=== PATIENT | male | born 1975 | race Caucasian/White ===

== ENCOUNTER 2017-01-27 23:28 | Emergency (ER) | payer BC ==
[2017-01-27 23:34] VITALS: O2SAT 98
--- NOTE | 2017-01-28 00:38 | C.PDOC ---
History Of Present Illness Patient presents to ED with complaints of nasal bleeding for 2 hours. Patient state she has a polyp on his right nare that bleeds and cannot be operated because he is currently taking Brilinta. Patient denies vision changes, dizziness, n/v/d or any other complaints at this time. Time Seen by Provider: 01/28/17 00:38 Chief Complaint (Nursing): ENT Problem History Per: Patient History/Exam Limitations: None Onset/Duration Of Symptoms: Hrs Current Symptoms Are (Timing): Still Present Symptoms Have Been: Continuous Severity: Mild Pain Scale Rating Of: 2 Past Medical History Reviewed: Historical Data, Nursing Documentation, Vital Signs Vital Signs: Last Vital Signs Temp 97.7 F 01/27/17 23:33 Pulse 75 01/27/17 23:33 Resp 22 01/27/17 23:33 BP 140/86 01/27/17 23:33 Pulse Ox 98 01/28/17 01:04 - Medical History PMH: HTN Surgical History: Coronary Stent - [facility] Procedures DILATION OF 1 COR ART WITH DRUG-ELUT INTRA, PERC APPROACH (09/01/16) MEASURE OF CARDIAC SAMPL & PRESSURE, L HEART, PERC APPROACH (09/01/16) PLAIN RADIOGRAPHY OF LEFT HEART USING OTHER CONTRAST (09/01/16) PLAIN RADIOGRAPHY OF MULT COR ART USING OTH CONTRAST (09/01/16) Family History: States: [place], CAD (father) - Social History Hx Tobacco Use: Yes Hx Alcohol Use: No Hx Substance Use: No - Immunization History Hx Tetanus Toxoid Vaccination: No Hx Influenza Vaccination: No Hx Pneumococcal Vaccination: No Review Of Systems Constitutional: Negative for: Fever, Chills Eyes: Negative for: Vision Change ENT: Positive for: Nose Pain Gastrointestinal: Negative for: Nausea, Vomiting, Diarrhea Neurological: Negative for: Weakness, Dizziness Physical Exam - Physical Exam Appears: Non-toxic, No Acute Distress Skin: Warm, Dry Head: Normacephalic Nose: No Discharge, No Epistaxis, Other (No active bleeding) Oral Mucosa: Moist Throat: No Erythema Chest: Symmetrical Cardiovascular: Rhythm Regular Respiratory: No Rales, No Rhonchi, No Wheezing Gastrointestinal/Abdominal: Soft, No Tenderness, No Guarding, No Rebound Extremity: Capillary Refill (<2 seconds), No Deformity Neurological/Psych: Oriented x3, Normal Speech, Normal Cognition Gait: Steady ED Course And Treatment - Laboratory Results Result Diagrams: 01/28/17 01:12 01/28/17 01:12 O2 Sat by Pulse Oximetry: 98 (RA) Pulse Ox Interpretation: Normal Disposition Counseled Patient/Family Regarding: Studies Performed, Diagnosis, Need For Followup - Disposition Referrals: Adalberto Purvis MD [Primary Care Provider] - Disposition: HOME/ ROUTINE Disposition Time: 01:48 Condition: FAIR Additional Instructions: Please return if symptoms recur Instructions: Nosebleed (ED), Nasal Polyps (ED) Forms: [employer] (Emirati) - Clinical Impression Clinical Impression: Epistaxis, Nasal polyp - Scribe Statement The provider has reviewed the documentation as recorded by the Scribe Jus Keith All medical record entries made by the Sriibe were at my direction and personally dictated by me. I have reviewed the chart and agree that the record accurately reflects my personal performance of the history, physical exam, medical decision making, and the department course for this patient. I have also personally directed, reviewed, and agree with the discharge instructions and disposition.
[2017-01-28 01:16] LABS: BASO % 0.1 % (0.0-2.0); EOS % 0.1 % (0.0-4.0); HEMOGLOBIN 12.1 g/dL (12.0-18.0); LYMPH # 1.2 K/uL (1.0-4.3); LYMPH % 12.7 % (20.0-40.0); MEAN CELL VOLUME 85.4 fL (80.0-94.0); MEAN CORPUSCULAR HEMOGLOBIN 29.2 pg (27.0-31.0); MEAN CORPUSCULAR HGB CONC 34.1 g/dL (33.0-37.0); MEAN PLATELET VOLUME 9.1 fL (7.2-11.7); MONO # 0.5 K/uL (0.0-0.8); MONO % 5.1 % (0.0-10.0); NEUT # 7.9 K/uL (1.8-7.0); RBC 4.15 Mil/uL (4.40-5.90); RED CELL DISTRIBUTION WIDTH 13.6 % (11.5-14.5); WHITE BLOOD COUNT 9.6 K/uL (4.8-10.8)
[2017-01-28 01:25] LABS: GFR AFRICAN-AMERICAN > 60; GFR NON-AFRICAN AMERICAN > 60
[2017-01-28 01:26] LABS: BLOOD UREA NITROGEN 23 mg/dL (9-20); CALCIUM 8.4 mg/dl (8.6-10.4)
[2017-01-28 01:27] LABS: INR 1.1; PROTHROMBIN TIME 12.1 SECONDS (9.7-12.2)
[2017-01-28 02:22] VITALS: BP 119/73; PULSE 60; RESP 18; TEMP 97.6
== END 2017-01-28 02:23 | disposition home or self-care (01) ==
LOC: C.ER 23:28 → SUPCPDRO 23:28 → C.ER 01-28 02:23
DX: R04.0 Epistaxis (principal); J33.9 Nasal polyp, unspecified

== ENCOUNTER 2017-02-10 09:35 | Observation (INO) | payer BC ==
[2017-02-10] MEDS ORDERED: Phenylephrine 1% Nasal Spray (15 ml) ONE (09:51)
[2017-02-10] MEDS ORDERED: Lidocaine 2% Inj (20ml) ONE (09:52)
[2017-02-10] MEDS ORDERED: Sodium Chloride 0.9% 1,000 ML IV ONE (10:21)
--- NOTE | 2017-02-10 10:23 | C.PDOC ---
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 Patient reports he had a nasal polyp removed on 02/04/2017 and is also on blood thinners. Patient denies fever, chest pain, SOB, headache or dizziness. 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 ) Past Medical History Reviewed: Historical Data, Nursing Documentation, Vital Signs Vital Signs: Last Vital Signs Temp 97.5 F L 02/10/17 15:08 Pulse 75 02/10/17 15:08 Resp 18 02/10/17 15:08 BP 113/74 02/10/17 15:08 Pulse Ox 100 02/10/17 15:08 - Medical History PMH: HTN Surgical History: Coronary Stent - [facility] Procedures DILATION OF 1 COR ART WITH DRUG-ELUT INTRA, PERC APPROACH (09/01/16) MEASURE OF CARDIAC SAMPL & PRESSURE, L HEART, PERC APPROACH (09/01/16) PLAIN RADIOGRAPHY OF LEFT HEART USING OTHER CONTRAST (09/01/16) PLAIN RADIOGRAPHY OF MULT COR ART USING OTH CONTRAST (09/01/16) Family History: States: [place], CAD (father) - Social History Hx Tobacco Use: Yes Hx Alcohol Use: No Hx Substance Use: No - Immunization History Hx Tetanus Toxoid Vaccination: No Hx Influenza Vaccination: No Hx Pneumococcal Vaccination: No Review Of Systems Except As Marked, All Systems Reviewed And Found Negative. Constitutional: Negative for: Fever ENT: Positive for: Nose Discharge (Epistaxis ) Cardiovascular: Negative for: Chest Pain Respiratory: Negative for: Shortness of Breath Gastrointestinal: Positive for: Vomiting Neurological: Negative for: Headache, Dizziness Physical Exam - Physical Exam Appears: Non-toxic, In Acute Distress (Mild distress ) Skin: Warm, Dry, Pale, No Rash Head: Atraumatic, Normacephalic Eye(s): bilateral: Normal Inspection, PERRL, EOMI Ear(s): Bilateral: Normal Nose: Epistaxis (Activly bleeding from right nase with clots) Oral Mucosa: Moist Throat: Other ((+) Blood in the posterior pharynx) Neck: Normal, Normal ROM, Supple Chest: Symmetrical, No Tenderness Cardiovascular: Rhythm Regular, No Friction Rub, No Murmur Respiratory: Normal Breath Sounds, No Rales, No Rhonchi, No Wheezing Gastrointestinal/Abdominal: Normal Exam, Soft, No Tenderness Back: Normal Inspection, No CVA Tenderness, No Vertebral Tenderness Extremity: Normal ROM, No Swelling Neurological/Psych: Oriented x3, Normal Speech, Normal Motor Gait: Steady ED Course And Treatment - Laboratory Results Result Diagrams: 02/10/17 10:31 02/10/17 10:31 O2 Sat by Pulse Oximetry: 98 (RA ) Pulse Ox Interpretation: Normal Critical Care Time - Critical Care Note Total Time (in mins): 35 Documented critical care: time excludes all time spent performing seperately billable procedures. Medical Decision Making Medical Decision Making: PLAN: * CBC * CMP * Sodium Chloride IV ED OBSERVATION Discharge: Yes Date of observation admission: 02/10/17 Time of observation admission: 11:30 - Observation admission statement Patient is being placed in observation because:: severe epistaxis - Goals of Observation Goals of observation are:: observing for re-bleeding. - Progress Note Progress Note: The nose was having severe bleeding, pressure applied by me without success. Neosynephrine placed into the nares without success 1200, Posterior packing placed by [facility] lined with lidocaine and nasir- synephrine with control of bleeding. at 1300, on first re-exam, the patient had a spot of bleeding but is overall still controlled. Dr. Fowler contacted and states to observe the patient over the next 3 hours. 02/10/17 1400 The case was discussed with Dr. Fowler (the patient's ENT who states that the patient should follow up with the ENT from [place] in 1-2 days without fail. He states that the patient can be discharged with the packing in place and should not be removed. 02/10/[address] Fowler called back to explain to put the patient on Antibiotics upon discharge. 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 - Scribe Statement The provider has reviewed the documentation as recorded by the Scribe Kelly Garcia All medical record entries made by the Scribe were at my direction and personally dictated by me. I have reviewed the chart and agree that the record accurately reflects my personal performance of the history, physical exam, medical decision making, and the department course for this patient. I have also personally directed, reviewed, and agree with the discharge instructions and disposition. Procedures - Epistaxis Control Consent Obtained: verbal consent Nostril: Right Nose Prepped With: lidocaine (2%) Direct Inspection: yes Clots Removed by: manually Cautery Used: none Device Inserted: other (Posterior packing) Patient Tolerated Procedure: well Complications: other (Bleeding controlled)
[2017-02-10 10:38] LABS: BASO # 0.1 K/uL (0.0-0.2); EOS # 0.2 K/uL (0.0-0.7); EOS % 2.6 % (0.0-4.0); LYMPH # 1.9 K/uL (1.0-4.3); MEAN CELL VOLUME 85.7 fL (80.0-94.0); MEAN CORPUSCULAR HEMOGLOBIN 28.9 pg (27.0-31.0); MEAN CORPUSCULAR HGB CONC 33.7 g/dL (33.0-37.0); MEAN PLATELET VOLUME 8.3 fL (7.2-11.7); MONO # 0.5 K/uL (0.0-0.8); MONO % 8.2 % (0.0-10.0); RED CELL DISTRIBUTION WIDTH 13.9 % (11.5-14.5); WHITE BLOOD COUNT 5.8 K/uL (4.8-10.8)
[2017-02-10 10:46] LABS: INR 1.2
[2017-02-10 10:51] LABS: CHLORIDE 99 mmol/L (98-107); SODIUM 139 mmol/L (132-148)
[2017-02-10 10:52] LABS: POTASSIUM 4.4 mmol/L (3.6-5.2)
[2017-02-10 10:54] LABS: ALB/GLOB RATIO 1.3 (1.0-2.1); ALKALINE PHOSPHATASE 59 U/L (38-126); ALT/SGPT 54 U/L (21-72); AST/SGOT 40 U/L (17-59); BILIRUBIN,TOTAL 0.5 mg/dL (0.2-1.3); BLOOD UREA NITROGEN 10 mg/dL (9-20); CARBON DIOXIDE 30 mmol/L (22-30); GFR AFRICAN-AMERICAN > 60; GLUCOSE,RANDOM 101 mg/dL (75-110); TOTAL PROTEIN 6.9 g/dL (6.3-8.3)
[2017-02-10 10:55] LABS: CALCIUM 9.7 mg/dl (8.6-10.4)
[2017-02-10] MEDS ORDERED: Oxycodone/Acetaminophen 5/325 mg Tab ONE (12:50)
[2017-02-10] MEDS ORDERED: Oxycodone/Acetaminophen 5/325 mg Tab PO ONE (12:51)
[2017-02-10 15:09] VITALS: BP 113/74; PULSE 75; RESP 18; TEMP 97.5
[2017-02-10 17:04] VITALS: O2SAT 98
== END 2017-02-10 15:01 | disposition home or self-care (01) ==
LOC: C.ER 09:35 → C.9OBSV 12:31
PROVIDERS: ADMIT Emergency Medicine; ATTEND Emergency Medicine
DX: R04.0 Epistaxis (principal); I10 Essential (primary) hypertension; Z87.891 Personal history of nicotine dependence
CPT/HCPCS: 80053; 85025; 85610; 85730; 96360; G0378; J7040

== ENCOUNTER 2017-06-15 08:30 | Observation (INO) | payer BC ==
[2017-06-15] MEDS ORDERED: Aspirin 325 mg EC Tablets PO STA (09:17)
--- NOTE | 2017-06-15 09:37 | C.PDOC ---
History Of Present Illness 41 year old male with PMHx of HTN and HLD presents to the ED for evaluation of high blood pressure, dizziness, headache, and CP. Patient reports he had a STENT placed in the back of his heart done by Dr. Tate. Patient reports that this morning he felt like his blood pressure was high, and felt pressure in the back of his head. Patient also reports a pressure like non radiating CP, he measured his BP at home and was 140/110, tried to go to work but still felt dizzy so he decided to come in for evaluation. Patient denies fever, chills, diaphoresis, nausea, vomit, back pain, blurry vision. Time Seen by Provider: 06/15/17 09:06 Chief Complaint (Nursing): High Blood Pressure History Per: Patient History/Exam Limitations: no limitations Onset/Duration Of Symptoms: Hrs Current Symptoms Are (Timing): Still Present Associated Symptoms: Chest Pain, Dizziness, Headache Quality Of Symptoms: Asymptomatic Exacerbating Factor(s): Pos: None Recent travel outside of the [place]: No Additional History Per: Patient Past Medical History Reviewed: Historical Data, Nursing Documentation, Vital Signs Vital Signs: Last Vital Signs Temp 97.3 F L 06/15/17 08:44 Pulse 55 L 06/15/17 13:08 Resp 18 06/15/17 13:08 BP 130/73 06/15/17 13:08 Pulse Ox 98 06/15/17 13:08 - Medical History PMH: HTN, Hypercholesterolemia Surgical History: Coronary Stent - [facility] Procedures DILATION OF 1 COR ART WITH DRUG-ELUT INTRA, PERC APPROACH (09/01/16) MEASURE OF CARDIAC SAMPL & PRESSURE, L HEART, PERC APPROACH (09/01/16) PLAIN RADIOGRAPHY OF LEFT HEART USING OTHER CONTRAST (09/01/16) PLAIN RADIOGRAPHY OF MULT COR ART USING OTH CONTRAST (09/01/16) Family History: States: Unknown Family Hx, [place], CAD (father) - Social History Hx Tobacco Use: Yes Hx Alcohol Use: No Hx Substance Use: No - Immunization History Hx Tetanus Toxoid Vaccination: No Hx Influenza Vaccination: No Hx Pneumococcal Vaccination: No Review Of Systems Constitutional: Negative for: Fever, Chills, Sweats Eyes: Negative for: Vision Change Cardiovascular: Positive for: Chest Pain Respiratory: Negative for: Cough, Shortness of Breath Gastrointestinal: Negative for: Nausea, Vomiting, Abdominal Pain Musculoskeletal: Negative for: Back Pain Skin: Negative for: Rash Neurological: Positive for: Headache. Negative for: Weakness, Numbness Physical Exam - Physical Exam Appears: Non-toxic, No Acute Distress Skin: Normal Color, Warm, Dry Head: Atraumatic, Normacephalic Nose: No Discharge, No Deformity Oral Mucosa: Moist Neck: Normal ROM, Supple Chest: Symmetrical Cardiovascular: Rhythm Regular, No Murmur Respiratory: Normal Breath Sounds, No Rales, No Rhonchi, No Wheezing Gastrointestinal/Abdominal: Soft, No Tenderness Extremity: Normal ROM, No Pedal Edema, No Calf Tenderness, No Swelling Neurological/Psych: Oriented x3, Normal Speech, Normal Cognition Gait: Steady ED Course And Treatment - Laboratory Results Result Diagrams: 06/15/17 09:57 06/15/17 09:57 ECG: Interpreted By Me, Viewed By Me ECG Rhythm: Sinus Bradycardia Rate From EC O2 Sat by Pulse Oximetry: 100 (On RA) Pulse Ox Interpretation: Normal - Radiology CXR: Interpreted by Me, Viewed By Me CXR Interpretation: Yes: Other (No focal consolidation, significant pleural effusion, or definite pneumothorax identified.). No: No Acute Disease, Infiltrates Medical Decision Making Medical Decision Making: Impression : 41 y/o male with a coronary stent c/o high BP, headache and CP. Plan: * EKG * Blood work * CXR * Ecotrin 325 mg PO 11:30 - Spoke with Dr. Purvis about the patient who recommended Dr. Nicole for admission but he is currently on vacation, then called and spoke with Medicine marble mason. Spoke with patient and he accepts and agrees with admission. Disposition Discussed With : Lela Deleon Counseled Patient/Family Regarding: Studies Performed, Diagnosis - Disposition Disposition: HOSPITALIZED Disposition Time: 11:25 Condition: GUARDED - POA Present On Arrival: None - Clinical Impression Clinical Impression: Acute coronary syndrome, Angina at rest - Scribe Statement The provider has reviewed the documentation as recorded by the Scribe Vidal Damico All medical record entries made by the Scribe were at my direction and personally dictated by me. I have reviewed the chart and agree that the record accurately reflects my personal performance of the history, physical exam, medical decision making, and the department course for this patient. I have also personally directed, reviewed, and agree with the discharge instructions and disposition. Decision To Admit - Pt Status Changed To: Hospital Disposition Of: Observation - . Bed Request Type: Telemetry Admitting Physician: Lela Deleon Patient Diagnosis: Acute coronary syndrome, Angina at rest
[2017-06-15 10:08] LABS: BASO % 0.2 % (0.0-2.0); EOS # 0.2 K/uL (0.0-0.7); EOS % 4.6 % (0.0-4.0); HEMATOCRIT 41.5 % (35.0-51.0); LYMPH # 2.2 K/uL (1.0-4.3); LYMPH % 47.6 % (20.0-40.0); MEAN CORPUSCULAR HEMOGLOBIN 29.4 pg (27.0-31.0); MEAN PLATELET VOLUME 9.5 fL (7.2-11.7); MONO # 0.4 K/uL (0.0-0.8); MONO % 9.5 % (0.0-10.0); NRBC % 0.1 % (0.0-2.0); RED CELL DISTRIBUTION WIDTH 13.7 % (11.5-14.5); WHITE BLOOD COUNT 4.7 K/uL (4.8-10.8)
[2017-06-15 10:15] LABS: ALB/GLOB RATIO 1.7 (1.0-2.1); ALKALINE PHOSPHATASE 49 U/L (38-126); ALT/SGPT 35 U/L (21-72); AST/SGOT 27 U/L (17-59); BILIRUBIN,TOTAL 0.6 mg/dL (0.2-1.3); BLOOD UREA NITROGEN 13 mg/dL (9-20); CALCIUM 8.6 mg/dl (8.6-10.4); CARBON DIOXIDE 30 mmol/L (22-30); CHLORIDE 99 mmol/L (98-107); CHOLESTEROL 137 mg/dL (0-199); GFR AFRICAN-AMERICAN > 60; GLUCOSE,RANDOM 97 mg/dL (75-110); POTASSIUM 4.8 mmol/L (3.6-5.2); SODIUM 135 mmol/L (132-148); TOTAL PROTEIN 6.8 g/dL (6.3-8.3)
--- NOTE | 2017-06-15 10:22 | RAD ---
HISTORY: chest pain COMPARISON: Chest x-ray performed 09/01/16 TECHNIQUE: Chest, one view. FINDINGS: LUNGS: No focal consolidation. Please note that chest x-ray has limited sensitivity for the detection of pulmonary masses. PLEURA: No significant pleural effusion identified. No definite pneumothorax . CARDIOVASCULAR: The cardiomediastinal silhouette appears within normal limits of size. OSSEOUS STRUCTURES: No acute osseous abnormality identified. VISUALIZED UPPER ABDOMEN: Unremarkable. OTHER FINDINGS: None. IMPRESSION: No focal consolidation, significant pleural effusion, or definite pneumothorax identified.
--- NOTE | 2017-06-15 13:59 | CP.PCM.PN ---
Subjective - Date & Time of Evaluation Date of Evaluation: 06/15/17 Time of Evaluation: 09:00 - Subjective Subjective: Patient was seen and examined at bedside. 41 year old male with PMHx of HTN and HLD presents to the ED for evaluation of high blood pressure, dizziness, headache, and CP. Patient reports he had a STENT placed in the back of his heart done by Dr. Tate. Patient reports that this morning he felt like his blood pressure was high, and felt pressure in the back of his head. Patient also reports a pressure like non radiating CP, he measured his BP at home and was 140/110, tried to go to work but still felt dizzy so he decided to come in for evaluation. He reports that he has been complaint with his medications and his last cardiology visit was one month ago. He also reports that he has a stress test in December and reports this was normal. He states that he feels like when works is stressful he gets this same feeling. Patient denies fever, chills , diaphoresis, nausea, vomit, back pain, blurry vision. PMH: VA, HTN Medications: Crestor 20mg PO HS, Coreg 6.25 mg PO BID, Protonix 40mg PO daily, Lisinopril 5mg PO daily, Plavix 75mg PO daily, Aspirin 81mg PO daily Surgical hx: none Family hx: Father of VA at age 60; mother - HTN, diabetes, and HLD; sister - HTN, aneurysm, had an VA at age 47 and is still living Social: Pt is a former smoker for 16 years smoking continues to smoke, has difficulties quitting. Denies illicit drugs, drinks alcohol socially. 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 PMD: Dr. Adalberto Purvis in [place], [place] Cardiology: Dr. Tate, last visit was one month ago Objective - Vital Signs/Intake and Output Vital Signs (last 24 hours): Temp Pulse Resp BP Pulse Ox 97.3 F L 55 L 18 130/73 98 06/15/17 08:44 06/15/17 13:08 06/15/17 13:08 06/15/17 13:08 06/15/17 13:08 - Medications Medications: Current Medications Aspirin (Aspirin Chewable) 81 mg PO DAILY NESTOR Carvedilol (Coreg) 6.25 mg PO BID NESTOR Clopidogrel Bisulfate (Plavix) 75 mg PO DAILY NESTOR Famotidine (Pepcid) 20 mg PO BID NESTOR Lisinopril (Zestril) 5 mg PO DAILY NESTOR Rosuvastatin Calcium (Crestor) 20 mg PO HS NESTOR - Labs Labs: 06/15/17 09:57 06/15/17 09:57 - Constitutional Appears: Non-toxic, No Acute Distress - Head Exam Head Exam: NORMAL INSPECTION - Eye Exam Eye Exam: EOMI Pupil Exam: NORMAL ACCOMODATION - ENT Exam ENT Exam: Mucous Membranes Moist - Respiratory Exam Respiratory Exam: Clear to Ausculation Bilateral, NORMAL BREATHING PATTERN. absent: Accessory Muscle Use, Rales, Rhonchi, Wheezes, Respiratory Distress - Cardiovascular Exam Cardiovascular Exam: REGULAR RHYTHM, +S1, +S2 - GI/Abdominal Exam GI & Abdominal Exam: Soft, Normal Bowel Sounds. absent: Distended, Firm, Guarding, Tenderness - Extremities Exam Extremities Exam: Normal Inspection. absent: Calf Tenderness, Pedal Edema - Back Exam Back Exam: NORMAL INSPECTION. absent: CVA tenderness (L), CVA tenderness (R), paraspinal tenderness - Neurological Exam Neurological Exam: Alert, Awake, CN II-XII Intact, Normal Gait, Oriented x3 - Psychiatric Exam Psychiatric exam: Normal Affect, Normal Mood - Skin Skin Exam: Dry, Intact, Normal Color, Warm Assessment and Plan - Assessment and Plan (Free Text) Assessment: Stable Anginaf/u repeat echo chest pain has resolved on exam, not reproducible Chest X ray - normal EKG Troponin <0.0120, will trend with EKGs f/u hba1c, lipid panel, cbc, cmp, tsh/freet4 Spoke to patients's gas plant technician (Dr. Tate) over the phone who stated likely not cardiac in origin, no need for cardiac consult at this time Patient has a normal stress test back in December Aspirin 81mg PO daily Hypertension Was elevated in the ED but now within normal limits, headaches has resolved Per patient, gas plant technician patients blood pressure is normally very well controlled Lisinopril 5mg PO daily Hx VA in August 2016, stent placed Crestor 20mg PO HS Coreg 6.25 mg PO BID Plavix 75mg PO daily Aspirin 81mg PO daily Prophylaxis: GI: Protonix 40mg DVT: SCDs Nicotine Patch Heart healthy diet All Medical management per Dr. Deleon
[2017-06-15 18:04] VITALS: RESP 20
[2017-06-16 06:44] LABS: ALB/GLOB RATIO 1.7 (1.0-2.1); ALKALINE PHOSPHATASE 48 U/L (38-126); ALT/SGPT 30 U/L (21-72); AST/SGOT 32 U/L (17-59); BILIRUBIN,TOTAL 0.5 mg/dL (0.2-1.3); BLOOD UREA NITROGEN 16 mg/dL (9-20); CALCIUM 8.7 mg/dl (8.6-10.4); CARBON DIOXIDE 29 mmol/L (22-30); CHLORIDE 98 mmol/L (98-107); GFR AFRICAN-AMERICAN > 60; GLUCOSE,RANDOM 90 mg/dL (75-110); MAGNESIUM 1.9 mg/dL (1.6-2.3); PHOSPHOROUS 3.6 mg/dL (2.5-4.5); POTASSIUM 4.4 mmol/L (3.6-5.2); SODIUM 134 mmol/L (132-148); TOTAL PROTEIN 6.3 g/dL (6.3-8.3)
[2017-06-16 06:57] LABS: BASO # 0.1 K/uL (0.0-0.2); BASO % 1.3 % (0.0-2.0); EOS # 0.2 K/uL (0.0-0.7); EOS % 4.5 % (0.0-4.0); HEMATOCRIT 40.7 % (35.0-51.0); LYMPH # 2.5 K/uL (1.0-4.3); LYMPH % 52.7 % (20.0-40.0); MEAN CORPUSCULAR HEMOGLOBIN 29.8 pg (27.0-31.0); MEAN CORPUSCULAR HGB CONC 35.5 g/dL (33.0-37.0); MEAN PLATELET VOLUME 9.6 fL (7.2-11.7); MONO # 0.4 K/uL (0.0-0.8); MONO % 8.1 % (0.0-10.0); NRBC % 0.1 % (0.0-2.0); RED CELL DISTRIBUTION WIDTH 13.4 % (11.5-14.5); WHITE BLOOD COUNT 4.8 K/uL (4.8-10.8)
[2017-06-16 07:09] LABS: THYROID STIMULATING HORMONE 1.42 mIU/L (0.46-4.68)
[2017-06-16 08:16] VITALS: O2SAT 97
[2017-06-16] MEDS ORDERED: Pantoprazole 40 mg EC Tab PO SCH (10:00)
[2017-06-16 12:51] VITALS: BP 129/93; PULSE 65; TEMP 98
--- NOTE | 2017-06-16 16:33 | CP.PCM.PN ---
Subjective - Date & Time of Evaluation Date of Evaluation: 06/16/17 Time of Evaluation: 11:00 - Subjective Subjective: PGY-[address] Deleon Patient seen and examined at bedside. No acute events overnight. Patient's chest pain has resolved. Patient has good PO intake. Patient denies fever, chills, headache, shortness of breath, nausea or vomiting. Objective - Vital Signs/Intake and Output Vital Signs (last 24 hours): Temp Pulse Resp BP Pulse Ox 98.0 F 65 20 129/93 H 97 06/16/17 12:50 06/16/17 12:50 06/16/17 12:50 06/16/17 12:50 06/16/17 12:50 Intake and Output: 06/16/17 06/16/17 06:59 18:59 Output Total 200 Balance -200 - Labs Labs: 06/16/17 06:12 06/16/17 06:12 - Constitutional Appears: Well, Non-toxic, No Acute Distress - Head Exam Head Exam: ATRAUMATIC, NORMOCEPHALIC - Eye Exam Eye Exam: Normal appearance - ENT Exam ENT Exam: Mucous Membranes Moist - Neck Exam Neck Exam: Normal Inspection - Respiratory Exam Respiratory Exam: Clear to Ausculation Bilateral, NORMAL BREATHING PATTERN. absent: Respiratory Distress - Cardiovascular Exam Cardiovascular Exam: REGULAR RHYTHM, +S1, +S2. absent: Murmur - GI/Abdominal Exam GI & Abdominal Exam: Soft, Normal Bowel Sounds - Extremities Exam Extremities Exam: Normal Capillary Refill, Normal Inspection. absent: Joint Swelling - Neurological Exam Neurological Exam: Alert, Awake, Oriented x3 - Psychiatric Exam Psychiatric exam: Normal Affect, Normal Mood - Skin Skin Exam: Dry, Warm Assessment and Plan - Assessment and Plan (Free Text) Assessment: Stable Angina Troponin negative x3 Echo showed normal LV size, systolic function mildly impaired, Grade I abnormal relaxation pattern chest pain has resolved on exam, not reproducible Chest X ray - normal a1c 5.8, lipid panel and TSH unremarkable Spoke to patients's hvac tech (Dr. Tate) over the phone who stated likely not cardiac in origin, no need for cardiac consult at this time Patient has a normal stress test back in December Aspirin 81mg PO daily Hypertension Was elevated in the ED but now within normal limits, headaches has resolved Per patient, hvac tech patients blood pressure is normally very well controlled Lisinopril 5mg PO daily Hx [place] in August 2016, stent placed Crestor 20mg PO HS Coreg 6.25 mg PO BID Plavix 75mg PO daily Aspirin 81mg PO daily Prophylaxis: GI: Protonix 40mg DVT: SCDs Nicotine Patch Heart healthy diet Patient is medically stable to be discharge Patient was instructed to follow up with PMD and hvac tech All Medical management per Dr. Deleon
--- NOTE | 2017-06-16 19:12 | CARD ---
APPROVED REPORT EXAM: Two-dimensional and M-mode echocardiogram with Doppler and color Doppler. Other Information Quality : GoodRhythm : INDICATION Dizziness and Vertigo Cardiac Disease: CAD Chest Pain STEMI RISK FACTORS Hypertension Hyperlipidemia 2D DIMENSIONS IVSd0.8 (0.7-1.1cm)LVDd5.0 (3.9-5.9cm) PWd0.8 (0.7-1.1cm)LVDs3.8 (2.5-4.0cm) FS (%) 23.0 %LVEF (%)45.9 (>50%) M-Mode DIMENSIONS RVDd2.51 (2.1-3.2cm)Left Atrium (MM)3.46 (2.5-4.0cm) IVSd0.85 (0.7-1.1cm)Aortic Root2.99 (2.2-3.7cm) LVDd5.14 (4.0-5.6cm)Aortic Cusp Exc.1.90 (1.5-2.0cm) PWd0.81 (0.7-1.1cm)FS (%) 27 % LVDs3.74 (2.0-3.8cm)LVEF (%)53 (>50%) Mitral Valve MV E Kaiajetd26.2cm/sMV A Polntwwz96.0cm/sE/A ratio0.7 TDI E/Lateral E'0.0E/Medial E'0.0 Tricuspid Valve TR Peak [id number]/sTR Peak [id number] LEFT VENTRICLE The left ventricle is normal size. There is normal left ventricular wall thickness. The systolic function is mildly impaired. Mild Septal Hypokinesis Transmitral Doppler flow pattern is Grade I-abnormal relaxation pattern. RIGHT VENTRICLE The right ventricle is normal size. There is normal right ventricular wall thickness. The right ventricular systolic function is normal. ATRIA The left atrium size is normal. The right atrium size is normal. AORTIC VALVE The aortic valve is normal in structure. No aortic regurgitation is present. There is no aortic valvular stenosis. MITRAL VALVE The mitral valve is mildly thickened. A mild mitral valve prolapse is present. There is no mitral valve stenosis. Mitral regurgitation is trace. TRICUSPID VALVE The tricuspid valve is normal in structure. There is trace tricuspid regurgitation. PULMONIC VALVE There is trace to mild pulmonic valvular regurgitation. GREAT VESSELS The aortic root is normal in size. The IVC is normal in size and collapses >50% with inspiration. PERICARDIAL EFFUSION There is no pericardial effusion. <Conclusion> The left ventricle is normal size. There is normal left ventricular wall thickness. The systolic function is mildly impaired. Mild Septal Hypokinesis Transmitral Doppler flow pattern is Grade I-abnormal relaxation pattern.
--- NOTE | 2017-06-17 06:56 | HP ---
HISTORY OF PRESENT ILLNESS: Patient is admitted to the hospital with chief complaint of chest pain and weakness. Patient came to the ER and was advised admission. Patient has a history of coronary artery disease, hypercholesterolemia. Patient came to the hospital and advised admission. Patient has a history of stent inserted in August, followed by Dr. Tate. PHYSICAL EXAMINATION: GENERAL: Patient is awake, alert, oriented. VITAL SIGNS: Temperature 98, pulse 90. HEENT: Within normal limits. NECK: Supple. CHEST: Symmetrical. HEART: Regular. ABDOMEN: Soft. EXTREMITIES: No edema. IMPRESSION: Patient is suffering from unstable angina. Patient to get bedrest, cardiac enzymes, Cardiology evaluation. Lela Deleon MD
[2017-06-17] MEDS ORDERED: Pneumococcal 23-Valent Vaccine SC ONE (10:00)
== END 2017-06-16 13:00 | disposition home or self-care (01) ==
LOC: C.ER 08:30 → C.9E 11:27 → C.6T 12:54
PROVIDERS: ADMIT Internal Medicine Pulmonary Disease; ATTEND Internal Medicine Pulmonary Disease
DX: I25.110 Atherosclerotic heart disease of native coronary artery with unstable angina pectoris (principal); I10 Essential (primary) hypertension; E78.5 Hyperlipidemia, unspecified; I25.2 Old myocardial infarction; Z87.891 Personal history of nicotine dependence
CPT/HCPCS: 36415; 71010; 80053; 80061; 83036; 83735; 83880; 84100; 84439; 84443; 84484; 85025; 93306; 99284; G0378; J1644

== ENCOUNTER 2017-07-31 12:58 | Emergency (ER) | payer BC ==
[2017-07-31 13:02] VITALS: BMI 22.6
[2017-07-31 13:06] VITALS: O2SAT 99
[2017-07-31] MEDS ORDERED: Sodium Chloride 0.9% 1,000 ML IV STA (13:58)
[2017-07-31] MEDS ORDERED: Lidocaine 95 MG in Sodium Chloride 0.9% 100 ML IV STA (13:58)
--- NOTE | 2017-07-31 13:58 | C.PDOC ---
History Of Present Illness 41 year old male presents to the ED c/o of new onset of intermittent right flank and right groin pain that started this morning. Patient states his pain is associated with nausea and hematuria. Patient denies any prior hx of kidney stones, fever, chills, vomit, diarrhea. Time Seen by Provider: 07/31/17 13:31 Chief Complaint (Nursing): Back Pain History Per: Patient History/Exam Limitations: no limitations Onset/Duration Of Symptoms: Hrs Current Symptoms Are (Timing): Still Present Severity: Mild Quality Of Discomfort: "Pain" Associated Symptoms: Nausea, Urinary Symptoms Recent travel outside of the [place]: No Additional History Per: Patient Past Medical History Reviewed: Historical Data, Nursing Documentation, Vital Signs Vital Signs: Last Vital Signs Temp 97.3 F L 07/31/17 13:02 Pulse 78 07/31/17 13:02 Resp 18 07/31/17 13:02 BP 147/96 H 07/31/17 13:02 Pulse Ox 99 07/31/17 15:45 - Medical History PMH: HTN, Hypercholesterolemia Surgical History: Coronary Stent - [facility] Procedures DILATION OF 1 COR ART WITH DRUG-ELUT INTRA, [facility] APPROACH (09/01/16) MEASURE OF CARDIAC SAMPL & PRESSURE, L HEART, PERC APPROACH (09/01/16) PLAIN RADIOGRAPHY OF LEFT HEART USING OTHER CONTRAST (09/01/16) PLAIN RADIOGRAPHY OF MULT COR ART USING OTH CONTRAST (09/01/16) Family History: States: Unknown Family Hx, [place], CAD (father) - Social History Hx Tobacco Use: Yes Hx Alcohol Use: No Hx Substance Use: No - Immunization History Hx Tetanus Toxoid Vaccination: No Hx Influenza Vaccination: No Hx Pneumococcal Vaccination: No Review Of Systems Constitutional: Negative for: Fever, Chills Cardiovascular: Negative for: Chest Pain, Palpitations Respiratory: Negative for: Cough, Shortness of Breath Gastrointestinal: Positive for: Nausea. Negative for: Abdominal Pain Genitourinary: Positive for: Hematuria Musculoskeletal: Positive for: Back Pain, Other (groin pain) Skin: Negative for: Rash Neurological: Negative for: Weakness, Numbness Physical Exam - Physical Exam Appears: Non-toxic, Other (Moderate distress) Skin: Normal Color, Warm, Dry Head: Atraumatic, Normacephalic Eye(s): bilateral: Normal Inspection Nose: No Discharge, No Deformity Oral Mucosa: Moist Neck: Normal ROM, Supple Chest: Symmetrical Cardiovascular: Rhythm Regular, No Murmur Respiratory: Normal Breath Sounds, No Rales, No Rhonchi, No Wheezing Gastrointestinal/Abdominal: Soft, No Tenderness, No Guarding, No Rebound Back: CVA Tenderness Extremity: Normal ROM, No Deformity, No Swelling Neurological/Psych: Oriented x3, Normal Speech, Normal Cognition Gait: Steady ED Course And Treatment - Laboratory Results Result Diagrams: 07/31/17 14:09 07/31/17 14:09 O2 Sat by Pulse Oximetry: 99 (On RA) Pulse Ox Interpretation: Normal - CT Scan/US CT abd/pelvis Other Rad Studies (CT/US): Read By Radiologist, Radiology Report Reviewed CT/US Interpretation: PROCEDURE: CT scan abdomen pelvis. HISTORY: Dated 07/31 right-sided flank pain. COMPARISON: No prior study available for comparison. TECHNIQUE: Contiguous axial images of the abdomen and pelvis performed without oral or intravenous contrast material. Additional 2 dimensional sagittal and reformats n. Coronal and Sagittal reformats generated. Radiation dose: Total exam DLP = 221.84 mGy-cm. This CT exam was performed using one or more of the following dose reduction techniques: Automated exposure control, adjustment of the mA and/or kV according to patient size, and/ or use of iterative reconstruction technique. FINDINGS: LOWER THORAX: Heart size normal. No significant pericardial effusion. Lung bases clear. No evidence of infiltrate effusion or basilar pneumothorax. LIVER: Liver exhibits normal size measuring approximately 15.4 cm in CC dimension. No obvious hepatic mass or collection. GALLBLADDER AND BILE DUCTS: Gallbladder is incompletely distended. No evidence of intraluminal gallbladder calculi. PANCREAS: Pancreas appears unremarkable without masses collections calcifications or significant ductal dilatation. SPLEEN: Spleen exhibits normal size and attenuation pattern without masses collections or calcifications. ADRENALS: No adrenal lesions. KIDNEYS AND URETERS: There is a tiny approximately 1.7 mm calculus within the mid right ureter with mild right -sided hydronephrosis. Punctate calcifications seen in the midpole and lower pole collecting system left kidney. No evidence of left-sided hydronephrosis. . BLADDER: Urinary bladder is incompletely distended. No evidence of intraluminal gallbladder calculi. REPRODUCTIVE: Prostate gland appears grossly unremarkable. APPENDIX: Normal appearing appendix best seen on axial image number [id number]. No periappendiceal inflammatory changes. BOWEL: Evaluation of the bowel is limited due to the lack of oral contrast. Stomach is distended with food debris liquid and air. Visualized loops of small bowel exhibit normal contour and caliber. No evidence acute mechanical small bowel obstruction. Scattered colonic diverticula without radiographic its diverticulitis. PERITONEUM: No evidence of free intraperitoneal air. There are no free or loculated fluid collections. Small bilateral fat containing inguinal hernias are present. LYMPH NODES: Unremarkable. No enlarged lymph nodes. VASCULATURE: Unremarkable. No aortic aneurysm. BONES: Minor multilevel degenerative spondylosis of the lower thoracic and lumbar spine. OTHER FINDINGS: None. IMPRESSION: There is a small proximal 0.7 mm calculus midpole right kidney with mild right-sided hydronephrosis. Punctate calcifications mid and lower pole left kidney. Diverticulosis without radiographic evidence of acute diverticulitis. Small bilateral fat containing inguinal hernias. Medical Decision Making Medical Decision Making: Impression : right flank and right groin pain Plan: * CT abd/pelvis * Labs * Flomax 0.4 mg PO * Lodocaine 95 mg IV * IV fluids * Toradol 30 mg IVP * Tylenol 975 mg PO * UA Disposition Counseled Patient/Family Regarding: Studies Performed, Diagnosis, Need For Followup, Rx Given - Disposition Referrals: [facility] [Outside] [facility] [Outside] Disposition: HOME/ ROUTINE Disposition Time: 15:43 Condition: IMPROVED Prescriptions: Ibuprofen [Motrin] 600 mg PO Q6 #30 tab Ondansetron [Zofran Odt] 4 mg PO TID PRN #9 odt PRN Reason: Nausea/Vomiting Tamsulosin [Flomax] 0.4 mg PO DAILY #14 cap Instructions: Kidney Stones (ED) Forms: [employer] ([facility]) - Clinical Impression Clinical Impression: Kidney stone - Scribe Statement The provider has reviewed the documentation as recorded by the Scribe Vidal Damico All medical record entries made by the Scribe were at my direction and personally dictated by me. I have reviewed the chart and agree that the record accurately reflects my personal performance of the history, physical exam, medical decision making, and the department course for this patient. I have also personally directed, reviewed, and agree with the discharge instructions and disposition.
[2017-07-31 14:17] LABS: HEMOGLOBIN 14.3 g/dL (12.0-18.0); MEAN CORPUSCULAR HEMOGLOBIN 30.1 pg (27.0-31.0); MEAN CORPUSCULAR HGB CONC 35.8 g/dL (33.0-37.0); MEAN PLATELET VOLUME 9.7 fL (7.2-11.7); RBC 4.75 Mil/uL (4.40-5.90); RED CELL DISTRIBUTION WIDTH 13.4 % (11.5-14.5); WHITE BLOOD COUNT 5.3 K/uL (4.8-10.8)
[2017-07-31 14:25] LABS: BLOOD UREA NITROGEN 13 mg/dL (9-20); CALCIUM 9.8 mg/dl (8.6-10.4); GFR AFRICAN-AMERICAN > 60; GFR NON-AFRICAN AMERICAN > 60
[2017-07-31 15:27] LABS: URINE BILIRUBIN NEGATIVE (NEGATIVE); URINE BLOOD 3+ (NEGATIVE); URINE CLARITY Hazy (Clear); URINE GLUCOSE (UA) NORMAL (Normal); URINE LEUKOCYTE ESTERASE NEG Leu/uL (Negative); URINE NITRATE NEGATIVE (NEGATIVE); URINE PROTEIN 1+ mg/dL (NEGATIVE); URINE UROBILINOGEN NORMAL mg/dL (0.2-1.0)
[2017-07-31 15:29] LABS: URINE COLOR BROWN (YELLOW)
--- NOTE | 2017-07-31 15:34 | CT ---
PROCEDURE: CT scan abdomen pelvis HISTORY: Dated 07/31/2017 right-sided flank pain COMPARISON: No prior study available for comparison TECHNIQUE: Contiguous axial images of the abdomen and pelvis performed without oral or intravenous contrast material. Additional 2 dimensional sagittal and reformats n. Coronal and Sagittal reformats generated. Radiation dose: Total exam DLP = 221.84 mGy-cm. This CT exam was performed using one or more of the following dose reduction techniques: Automated exposure control, adjustment of the mA and/or kV according to patient size, and/or use of iterative reconstruction technique. FINDINGS: LOWER THORAX: Heart size normal. No significant pericardial effusion. Lung bases clear. No evidence of infiltrate effusion or basilar pneumothorax. LIVER: Liver exhibits normal size measuring approximately 15.4 cm in CC dimension. No obvious hepatic mass or collection. GALLBLADDER AND BILE DUCTS: Gallbladder is incompletely distended. No evidence of intraluminal gallbladder calculi. PANCREAS: Pancreas appears unremarkable without masses collections calcifications or significant ductal dilatation. SPLEEN: Spleen exhibits normal size and attenuation pattern without masses collections or calcifications. ADRENALS: No adrenal lesions. KIDNEYS AND URETERS: There is a tiny approximately 1.7 mm calculus within the mid right ureter with mild right-sided hydronephrosis. Punctate calcifications seen in the midpole and lower pole collecting system left kidney. No evidence of left-sided hydronephrosis. . BLADDER: Urinary bladder is incompletely distended. No evidence of intraluminal gallbladder calculi REPRODUCTIVE: Prostate gland appears grossly unremarkable. APPENDIX: Normal appearing appendix best seen on axial image number [id number]. No periappendiceal inflammatory changes. BOWEL: Evaluation of the bowel is limited due to the lack of oral contrast. Stomach is distended with food debris liquid and air. Visualized loops of small bowel exhibit normal contour and caliber. No evidence acute mechanical small bowel obstruction. Scattered colonic diverticula without radiographic its diverticulitis. PERITONEUM: No evidence of free intraperitoneal air. There are no free or loculated fluid collections. Small bilateral fat containing inguinal hernias are present. LYMPH NODES: Unremarkable. No enlarged lymph nodes. VASCULATURE: Unremarkable. No aortic aneurysm. BONES: Minor multilevel degenerative spondylosis of the lower thoracic and lumbar spine. OTHER FINDINGS: None. IMPRESSION: There is a small proximal 0.7 mm calculus midpole right kidney with mild right-sided hydronephrosis. Punctate calcifications mid and lower pole left kidney. Diverticulosis without radiographic evidence of acute diverticulitis. Small bilateral fat containing inguinal hernias.
[2017-07-31 16:11] VITALS: BP 149/92; PULSE 73; RESP 16; TEMP 98.2
== END 2017-07-31 16:09 | disposition home or self-care (01) ==
LOC: C.ER 12:58
DX: N13.2 Hydronephrosis with renal and ureteral calculous obstruction (principal)
CPT/HCPCS: 74176; 80048; 81001; 85027; 96361; 96374; 99285; J1885; J2001; J7040